=== PATIENT | female | born 1990 | race American Indian/Alaskan Native ===

== ENCOUNTER 2020-07-14 20:04 | Emergency (ER) | payer SELFPAY ==
[2020-07-14] MEDS ORDERED: predniSONE 20 MG TAB PO ONE (22:39)
[2020-07-14] MEDS ORDERED: KETOROLAC 10 MG TAB PO ONE (22:39)
--- NOTE | 2020-07-14 22:40 | Emergency Department Report ---
ED General Adult HPI - General Chief complaint: Earache Stated complaint: PAIN IN RIGHT EAR LEAKING Time Seen by Provider: 07/14/20 22:10 Source: patient Mode of arrival: Ambulatory Limitations: No Limitations - History of Present Illness Initial comments: 30-year-old -[place] female patient without past medical history presents with complaints of swelling to the right side of the face with ear pain and throat pain x3 days and mid back pain x1 day. She denies any drainage from the ear or decreased hearing. She rates her throat pain as a 7/10 in severity and her back pain is 8/10 in severity. Patient denies any injury to her back, but does admit to heavy lifting. She also denies any loss of bladder/bowel control, numbness/tingling/weakness in her limbs, difficulty with ambulation/movement of the legs, difficulty swallowing, or difficulty opening/closing her jaw. No fever/chills/sweats per patient. She describes the pain in her back as tight. She denies any known recent sick contacts - Related Data Previous Rx's Medication Instructions Recorded Last Taken Type Amoxicillin/Potassium Clav 1 each PO BID 10 Days #20 tablet 07/15/20 Unknown Rx [Augmentin 875-125 Tablet] Diclofenac Sodium 50 mg PO TID PRN #21 tablet. 07/15/20 Unknown Rx Methocarbamol [Robaxin] 1,000 mg PO TID PRN #22 tablet 07/15/20 Unknown Rx Allergies Allergy/AdvReac Type Severity Reaction Status Date / Time No Known Allergies Allergy Unverified 07/14/20 22:43 ED Review of Systems ROS: Stated complaint: PAIN IN RIGHT EAR LEAKING Other details as noted in HPI Constitutional: denies: chills, fever Eyes: denies: eye pain, eye discharge, vision change ENT: throat pain Respiratory: denies: cough, shortness of breath Cardiovascular: denies: chest pain Endocrine: denies: excessive sweating Gastrointestinal: denies: abdominal pain, nausea, vomiting Genitourinary: denies: urgency, dysuria, frequency, hematuria Musculoskeletal: back pain Skin: denies: rash, lesions Neurological: denies: weakness, numbness, paresthesias, confusion, abnormal gait ED Past Medical Hx - Past Medical History Previous Medical History?: No - Surgical History Past Surgical History?: No - Social History Smoking Status: Former Smoker Substance Use Type: Marijuana - Medications Home Medications: Home Medications Medication Instructions Recorded Confirmed Last Taken Type Amoxicillin/Potassium Clav 1 each PO BID 10 Days #20 tablet 07/15/20 Unknown Rx [Augmentin 875-125 Tablet] Diclofenac Sodium 50 mg PO TID PRN #21 tablet. 07/15/20 Unknown Rx Methocarbamol [Robaxin] 1,000 mg PO TID PRN #22 tablet 07/15/20 Unknown Rx ED Physical Exam - General Limitations: No Limitations General appearance: alert, in no apparent distress - Head Head exam: Present: atraumatic, normocephalic - Eye Eye exam: Present: normal appearance. Absent: scleral icterus - ENT ENT exam: Present: TM's normal bilaterally, normal external ear exam - Expanded ENT Exam Expanded Ear exam: Present: normal external inspection Mouth exam: Present: tongue normal. Absent: drooling, trismus, muffled voice Throat exam: Positive: tonsillar erythema, tonsillar exudate (right), other (Uvula is midline). Negative: tonsillomegaly, R peritonsillar mass, L peritonsillar mass - Neck Neck exam: Present: full ROM, other (Preauricular lymphadenopathy noted with tenderness to palpation). Absent: tenderness, meningismus, lymphadenopathy - Respiratory Respiratory exam: Present: normal lung sounds bilaterally. Absent: respiratory distress - Cardiovascular Cardiovascular Exam: Present: regular rate, normal rhythm. Absent: systolic murmur, diastolic murmur, rubs, gallop - GI/Abdominal GI/Abdominal exam: Present: soft. Absent: distended, tenderness, guarding, rebound, rigid - Extremities Exam Extremities exam: Present: full ROM - Back Exam Back exam: Present: paraspinal tenderness (Thoracic), vertebral tenderness (Thoracic) - Neurological Exam Neurological exam: Present: alert, oriented X3, normal gait. Absent: motor sensory deficit - Psychiatric Psychiatric exam: Present: normal affect, normal mood - Skin Skin exam: Present: warm, dry, intact, normal color, cyanosis. Absent: rash, diaphoretic, erythema, ecchymosis ED Course Vital Signs 07/14/20 20:33 Temperature 99.0 F Pulse Rate 81 Respiratory 14 Rate Blood Pressure 104/78 O2 Sat by Pulse 96 Oximetry ED Medical Decision Making - Lab Data Result diagrams: 07/14/20 23:16 07/14/20 23:16 Lab Results 07/14/20 07/14/20 Range/Units 23:16 23:16 WBC 9.7 (4.5-11.0) K/mm3 RBC 3.78 (3.65-5.03) M/mm3 Hgb 12.6 (10.1-14.3) gm/dl Hct 36.2 (30.3-42.9) % MCV 96 (79-97) fl MCH 33 H (28-32) pg MCHC 35 H (30-34) % RDW 12.8 L (13.2-15.2) % Plt Count 113 L (140-440) K/mm3 Lymph % (Auto) 23.9 (13.4-35.0) % Robertson % (Auto) 11.0 H (0.0-7.3) % Eos % (Auto) 1.0 (0.0-4.3) % Baso % (Auto) 0.5 (0.0-1.8) % Lymph # (Auto) 2.3 (1.2-5.4) K/mm3 Robertson # (Auto) 1.1 H (0.0-0.8) K/mm3 Eos # (Auto) 0.1 (0.0-0.4) K/mm3 Baso # (Auto) 0.1 (0.0-0.1) K/mm3 Seg Neutrophils % 63.6 (40.0-70.0) % Seg Neutrophils # 6.2 (1.8-7.7) K/mm3 Sodium 133 L (137-145) mmol/L Potassium 4.1 (3.6-5.0) mmol/L Chloride 99.0 (98-107) mmol/L Carbon Dioxide 22 (22-30) mmol/L Anion Gap 16 mmol/L BUN 9 (7-17) mg/dL Creatinine 0.7 (0.6-1.2) mg/dL Estimated GFR > 60 ml/min BUN/Creatinine Ratio 13 % Glucose 124 H (65-100) mg/dL Calcium 9.3 (8.4-10.2) mg/dL Total Bilirubin 0.20 (0.1-1.2) mg/dL AST 13 (5-40) units/L ALT 9 (7-56) units/L Alkaline Phosphatase 49 (35-129) units/L Total Protein 6.6 (6.3-8.2) g/dL Albumin 4.0 (3.9-5) g/dL Albumin/Globulin Ratio 1.5 % - Radiology Data Radiology results: report reviewed XRay Report Signed Patient: ELEAZAR STACK MR #: [id number] : 1990 Acct:[id number] Age/Sex: 30 / F ADM Date: 07/14/20 Loc: ED Attending Dr: Ordering Physician: BEVERLY THOMPSON Date of Service: 07/14/20 Procedure(s): XR spine thoracic 2V Accession Number(s): [id number] cc: BEVERLY THOMPSON Fluoro Time In Minutes: THORACIC SPINE 2 VIEWS INDICATION / CLINICAL INFORMATION: upper pain, no injury. COMPARISON: None available. FINDINGS: VERTEBRAE: No acute fracture. No significant malalignment. DISC SPACES / FACET JOINTS:No significant abnormality. PARASPINAL SOFT TISSUES:No significant abnormality. ADDITIONAL FINDINGS: None. - Medical Decision Making 30-year-old -[place] female patient without past medical history presents with complaints of swelling to the right side of the face with ear pain and throat pain x3 days and mid back pain x1 day. She denies any drainage from the ear or decreased hearing. She rates her throat pain as a 7/10 in severity and her back pain is 8/10 in severity. Patient denies any injury to her back, but does admit to heavy lifting. She also denies any loss of bladder/bowel control, numbness/tingling/weakness in her limbs, difficulty with ambulation/movement of the legs, difficulty swallowing, or difficulty opening/closing her jaw. No fever/chills/sweats per patient. She describes the pain in her back as tight. She denies any known recent sick contacts Preauricular right-sided tender lymphadenopathy noted on exam with posterior pharyngeal erythema and mild right tonsillar exudate. X-ray of spine done due to vertebral tenderness of thoracic spine and is negative for any acute abnormalities. Neuro exam is normal. She denies any red flag symptoms. Will treat with Augmentin and recommend follow-up with PCP within 2 days. Her vitals are normal, she is well-appearing, she is stable for discharge home. Pain is controlled at this time. Strict return precautions were discussed in detail with patient who verbalizes understanding. Critical care attestation.: If time is entered above; I have spent that time in minutes in the direct care of this critically ill patient, excluding procedure time. ED Disposition Clinical Impression: Lymphadenitis, acute Acute pharyngitis Qualifiers: Pharyngitis/tonsillitis etiology: other specified organisms Qualified Code(s): J02.8 - Acute pharyngitis due to other specified organisms Acute back pain Qualifiers: Back pain location: thoracic back pain Back pain laterality: midline Qualified Code(s): M54.6 - Pain in thoracic spine Disposition: DC- TO HOME OR SELFCARE Is pt being admited?: No Condition: Stable Instructions: Back Pain (ED), Lymphadenopathy (ED), Pharyngitis (ED) Prescriptions: Amoxicillin/Potassium Clav [Augmentin 875-125 Tablet] 1 each PO BID 10 Days #20 tablet Diclofenac Sodium 50 mg PO TID PRN #21 tablet. PRN Reason: pain Methocarbamol [Robaxin] 1,000 mg PO TID PRN #22 tablet PRN Reason: muscle tightness/spasms Referrals: [facility] [Provider Group] - 2-3 Days
--- NOTE | 2020-07-14 23:50 | XRay Report ---
THORACIC SPINE 2 VIEWS INDICATION / CLINICAL INFORMATION: upper pain, no injury. COMPARISON: None available. FINDINGS: VERTEBRAE: No acute fracture. No significant malalignment. DISC SPACES / FACET JOINTS:No significant abnormality. PARASPINAL SOFT TISSUES:No significant abnormality. ADDITIONAL FINDINGS: None. Signer Name: Raymundo Núñez MD Signed: 07/14/2020 11:46 PM Workstation Name: [id number]
[2020-07-14 23:51] LABS: Basophils # (Auto) 0.1 K/mm3 (0.0-0.1); Basophils % (Auto) 0.5 % (0.0-1.8); Eosinophils # (Auto) 0.1 K/mm3 (0.0-0.4); Hematocrit 36.2 % (30.3-42.9); Hemoglobin 12.6 gm/dl (10.1-14.3); Lymphocytes # (Auto) 2.3 K/mm3 (1.2-5.4); Lymphocytes % (Auto) 23.9 % (13.4-35.0); Mean Corpuscular HGB Conc 35 % (30-34); Mean Corpuscular Volume 96 fl (79-97); Monocytes # (Auto) 1.1 K/mm3 (0.0-0.8); Platelet Count 113 K/mm3 (140-440); Red Blood Count 3.78 M/mm3 (3.65-5.03); Red Cell Distribution Width 12.8 % (13.2-15.2)
[2020-07-15 00:07] LABS: Alanine Aminotransferase 9 units/L (7-56); Blood Urea Nitrogen 9 mg/dL (7-17); Calcium 9.3 mg/dL (8.4-10.2); Hemolysis Index 5
[2020-07-15 00:13] LABS: BUN/Creatinine Ratio 13
[2020-07-15 01:06] VITALS: BP 110/78
== END 2020-07-15 00:34 | disposition home or self-care (01) ==
LOC: ED 20:04
DX: L04.9 Acute lymphadenitis, unspecified (principal); J02.8 Acute pharyngitis due to other specified organisms; M54.5 Low back pain; F12.10 Cannabis abuse, uncomplicated; Z87.891 Personal history of nicotine dependence; Z79.2 Long term (current) use of antibiotics; Z79.899 Other long term (current) drug therapy
CPT/HCPCS: 36415; 72070; 80053; 85025; 99284; J7512

== ENCOUNTER 2020-11-29 19:37 | Emergency (ER) | payer SELFPAY ==
--- NOTE | 2020-11-29 19:58 | Emergency Department Report ---
Blank Doc - Documentation Documentation: 30-year-old female with past medical history of shoulder dislocation presents with right shoulder pain with possible dislocation. Patient stated she was picking up her luggage and most likely dislocated her shoulder. Denies any direct trauma or injuries. 1- This initial assessment/diagnostic orders/clinical plan/ treatment(s) is/are subject to change based on pt's health status, clinical progression and re- assessment by fellow clinical providers in the ED. Further treatment and workup at subsequent clinical provers discretion. Patient/guardians urged not to elope from ED as their condition may be serious if not clinically assessed and managed. 2-x-rays
[2020-11-29 20:03] VITALS: BP 105/65
--- NOTE | 2020-11-29 20:28 | XRay Report ---
RIGHT SHOULDER 2 VIEWS INDICATION / CLINICAL INFORMATION: Right shoulder pain. Possible dislocation. COMPARISON: None available. FINDINGS: BONES / JOINT(S): There is inferior and medial displacement of the humeral head in relationship to th e glenoid. No significant arthritis. No fracture. SOFT TISSUES: No significant abnormality. ADDITIONAL FINDINGS: The visualized right lung is clear. IMPRESSION: Anterior dislocation of the right shoulder. Signer Name: Tony Mercado MD Signed: 11/29/2020 8:23 PM Workstation Name: [id number]
[2020-11-29] MEDS ORDERED: propofoL 200 MG/20 ML VIAL IV ONE (20:39)
[2020-11-29] MEDS ORDERED: SODIUM CHLORIDE 0.9% 1000 ML 1,000 ML IV ONE (20:39)
[2020-11-29] MEDS ORDERED: ETOMIDATE 20 MG/10 ML INJ IV ONE (20:39)
--- NOTE | 2020-11-29 20:39 | Emergency Department Report ---
Upper Extremity - HPI Chief Complaint: Shoulder Injury Stated Complaint: DISLOCATED RIGHT SHOULDER Time Seen by Provider: 11/29/20 20:35 Upper Extremity: Right Shoulder Occurred When: Today Mechanism: Hyperextension Symptoms: Yes Pain with Movement, Yes Deformity, Yes Limited Range of Movement, No Numbness, No Weakness, No Swelling, No Bruising/Ecchymosis, No Laceration or Abrasion Other History: Patient is a 30-year-old female that presents emergency room with complaints of right shoulder pain. Patient states she was lifting a suitcase an d she felt a pop. Patient states she was brought in by EMS. Patient's placed in a sling by EMS. Patient states she was given 50 mg of fentanyl by EMS and the pain is not better. Patient states the pain is a 10 out of 10. Patient states she has had this in the past. Patient states the pain is better with rest and worse with movement. Patient denies recent travel. Patient denies recent international travel. Patient denies exposure to the novel coronavirus. Patient denies sick contacts. Patient denies fever and chills. Patient denies cough. Patient denies diarrhea. Patient denies coming in contact with anybody with symptoms of the novel coronavirus. ED Review of Systems ROS: Stated complaint: DISLOCATED RIGHT SHOULDER Other details as noted in HPI Constitutional: denies: chills, fever Eyes: denies: eye pain, eye discharge, vision change ENT: denies: ear pain, throat pain Respiratory: denies: cough, shortness of breath, wheezing Cardiovascular: denies: chest pain, palpitations Endocrine: no symptoms reported Gastrointestinal: denies: abdominal pain, nausea, diarrhea Genitourinary: denies: urgency, dysuria, discharge Musculoskeletal: denies: back pain, joint swelling, arthralgia Skin: denies: rash, lesions Neurological: denies: headache, weakness, paresthesias Psychiatric: denies: anxiety, depression Hematological/Lymphatic: denies: easy bleeding, easy bruising ED Past Medical Hx - Past Medical History Previous Medical History?: Yes Additional medical history: Right shoulder dislocation - Surgical History Past Surgical History?: No - Family History Family history: no significant - Social History Smoking Status: Current Every Day Smoker Substance Use Type: None - Medications Home Medications: Home Medications Medication Instructions Recorded Confirmed Last Taken Type Amoxicillin/Potassium Clav 1 each PO BID 10 Days #20 tablet 07/15/20 Unknown Rx [Augmentin 875-125 Tablet] Diclofenac Sodium 50 mg PO TID PRN #21 tablet. 07/15/20 Unknown Rx Methocarbamol [Robaxin] 1,000 mg PO TID PRN #22 tablet 07/15/20 Unknown Rx Upper Extremity Exam - Exam General: Vital signs noted. No distress. Alert and acting appropriately. Head and Torso: No HEENT Abnormality, No Neck Tenderness, No Chest/Lungs Abnormality, No Abdominal Tenderness, No Back Tenderness Shoulder Exam: Yes Shoulder Tenderness, Yes Shoulder Deformity, No Clavicle Tenderness, No Normal Range of Motion in Shoulder, No AC Joint Tenderness Arm Exam: No Arm/Humerus Tenderness, No Arm Deformity Elbow: No Elbow Tenderness, No Normal Range of Motion in Elbow, No Elbow D eformity Forearm: No Forearm Tenderness, No Forearm Deformity, No Pain with Pronation, No Pain with Supination Wrist: Yes Normal ROM in Wrist, No Wrist Tenderness, No Wrist Deformity, No Snuffbox Tenderness, No Pain with Axial Thumb Compression Hand: Yes Normal ROM in Digit(s), No Hand Tenderness, No Hand Deformity, No Digi t Tenderness, No Digit(s) Deformity, No Tendon Dysfunction CMS Exam: No Broken Skin, No Normal Distal Pulses, No Normal Capillary Refill, No Normal Distal Sensation ED Course Vital Signs 11/29/20 19:58 Temperature 98.0 F Pulse Rate 63 Respiratory 18 Rate Blood Pressure 105/65 O2 Sat by Pulse 94 Oximetry - Reevaluation(s) Reevaluation #1: Patient consents to the procedure. I discussed the risk and benefits with patient. Patient voiced understanding of risk and benefits. Patient agreed to have procedure. Patient unable to sign consent form due to the fact that this is her right arm. Patient states that she is in too much pain to sign. Patient gave verbal consent. Moderate sedation protocol placed. 11/29/20 20:41 Reevaluation #2: Patient tolerated procedure well. See procedure note. No complications noted. Patient is now alert and answering questions. Patient's shoulder reduced without difficulty. X-ray ordered. 11/29/20 21:08 Reevaluation #3: Patient answering questions appropriately. Patient on the monitor. Patient's vital signs are stable. 11/29/20 21:15 Reevaluation #4: Patient is still alert and oriented x4. Patient answers questions verbally. Patient's vital signs are stable. 11/29/20 21:44 Reevaluation #5: Patient ambulatory. Patient tolerating p.o. intake. I discussed all results and clinical findings with patient. I discussed plan of care with patient. Patient agrees with plan of care. Patient is stable for discharge. Patient will be discharged home. Patient given discharge instructions. Patient voiced understanding of discharge instructions. 11/29/20 22:04 - Moderate Sedation Indications: fracture/dislocation redu Presedation Evaluation: Patient's last oral intake 7 hours ago. Patient denies allergies. Patient answered questions appropriately. Patient consented to procedures. Preparation: marketing project coordinator applied, pulse oximeter, capnometry used, supplemental O2 applied, suction/airway equipment at bedside, IV secured IV Etomidate Dose (mgs): 4.7 Complications: none Patient Tolerated Procedure: well, no complications Additional Comments: Procedure started at 2050 and ended at 2105. Patient tolerated procedure well. No complications. - Orthopedic Joint Reduction Joint #1 Consent Obtained: verbal consent, emergent situation Time Out Performed: Yes Side: right Joint Reduction Location: shoulder Analgesia: moderate sedation Shoulder Technique Used (if applicable): traction/counter-traction Technique Used: traction/counter-traction Post-Reduction Neuro Exam: intact, no change Post-Reduction Vascular Exam: intact, no change Post Reduction X-Ray Obtained: Yes Post Reduction X-Ray Results: reduced Splint Applied: Yes Patient Tolerated Procedure: well, no complications Additional Comments: Patient tolerated right shoulder reduction. No complications. Patient placed and seen immediately after procedure. Procedure started at 2050 and ended at 2105. ED Medical Decision Making - Radiology Data interpreted by me: First right shoulder x-ray: No fracture, anterior dislocation, soft tissue normal. Second right shoulder x-ray: No fracture, satisfactory reduction of the dislocation. Soft tissue normal, RIGHT SHOULDER 2 VIEWS INDICATION / CLINICAL INFORMATION: Right shoulder pain. Possible dislocation. COMPARISON: None available. FINDINGS: BONES / JOINT(S): There is inferior and medial displacement of the humeral head in relationship to the glenoid. No significant arthritis. No fracture. SOFT TISSUES: No significant abnormality. ADDITIONAL FINDINGS: The visualized right lung is clear. IMPRESSION: Anterior dislocation of the right shoulder. RIGHT SHOULDER 2 VIEW(S) INDICATION / CLINICAL INFORMATION: s/p reduction COMPARISON: None available. FINDINGS: There has been interval reduction of the right shoulder, which now projects in anatomic alignment. No definite fracture is identified. - Medical Decision Making Patient is a 30-year-old female that presents emergency room with right shoulder pain. Patient has history of dislocation. Patient has a deformity that appears to be consistent with a dislocation on exam. Patient had a shoulder x- ray which shows an anterior dislocation. Patient consented to moderate sedation and a shoulder reduction. Patient given etomidate and the patient responded well and the patient's shoulder was reduced. Patient then had a repeat shoulder x-ray. I reviewed both x-rays personally. Patient was monitored back to baseline for adequate amount of time. Prior to discharge patient was alert and oriented x4 answering all questions appropriately. Patient given discharge instructions. Patient stable for discharge. Critical care time documented due to the multiple reassessments, prolonged time at the bedside, interpretation of diagnostics.. - Differential Diagnosis Shoulder dislocation, shoulder pain, sprain, strain, fracture Critical Care Time: Yes Critical care time in (mins) excluding proc time.: 35 Critical care attestation.: If time is entered above; I have spent that time in minutes in the direct care of this critically ill patient, excluding procedure time. Critical Care Time: 35 minutes ED Disposition Clinical Impression: Shoulder pain Qualifiers: Chronicity: acute Laterality: right Qualified Code(s): M25.511 - Pain in right shoulder Dislocated shoulder Qualifiers: Encounter type: initial encounter Laterality: right Qualified Code(s): S43.004A - Unspecified dislocation of right shoulder joint, initial encounter Disposition: - TO HOME OR SELFCARE Is pt being admited?: No Does the pt Need Aspirin: No Condition: Stable Instructions: Shoulder Pain, Shoulder Dislocation, Moderate Conscious Sedation, Adult, Care After Additional Instructions: Patient to follow-up with primary care in 2 to 3 days. Patient to follow-up with orthopedist in 2 to 3 days. Patient to rest. Patient to increase water. Patient to avoid strenuous exercise or heavy lifting until cleared by orthopedist. Patient to remain in sling until cleared by orthopedist. Patient to take Tylenol or ibuprofen as needed for pain. Patient to take meds as directed. Patient to return to the ER if condition worsens, changes or new symptoms arise. Referrals: PRIMARY MD ARMANI [Primary Care Provider] - 2-3 Days CORIN GONZALEZ MD [Staff Physician] - 2-3 Days Time of Disposition: 22:05
[2020-11-29] MEDS ORDERED: KETOROLAC 30 MG/1 ML INJ IV ONE (21:25)
--- NOTE | 2020-11-29 21:56 | XRay Report ---
RIGHT SHOULDER 2 VIEW(S) INDICATION / CLINICAL INFORMATION: s/p reduction COMPARISON: None available. FINDINGS: There has been interval reduction of the right shoulder, which now projects in anatomic alignment. No definite fracture is identified. Signer Name: Anoop Veloz MD Signed: 11/29/2020 9:52 PM Workstation Name: [id number]
[2020-11-29] MEDS ORDERED: KETOROLAC 30 MG/1 ML INJ ONE (23:27)
== END 2020-11-30 00:28 | disposition home or self-care (01) ==
LOC: ED 19:37
DX: S43.004A Unspecified dislocation of right shoulder joint, initial encounter (principal); F17.200 Nicotine dependence, unspecified, uncomplicated; Z79.899 Other long term (current) drug therapy; X50.0XXA Overexertion from strenuous movement or load, initial encounter; Y93.89 Activity, other specified; Y92.89 Other specified places as the place of occurrence of the external cause; Y99.8 Other external cause status
CPT/HCPCS: 23650; 73030; 96361; 96374; 99283; J1885; J7030; J2704